=== PATIENT | female | born 1950 | race Caucasian/White ===

== ENCOUNTER 2023-03-27 18:04 | Inpatient (IN) | payer OTHER, MEDICAID ==
[2023-03-27 19:17] LABS: #Basophils 0.1 thou/uL (0.0-0.2); #Eosinphils 0.1 thou/uL (0.0-0.7); #Monocytes 0.6 thou/uL (0.11-0.59); #Neutrophils 8.6 thou/uL (1.40-6.50); %Basophils 0.5 % (0.0-1.0); %Eosinophils 0.9 % (0.0-10.0); %Lymphocytes 8.6 % (21.0-51.0); %Monocytes 5.8 % (0.0-10.0); %Neutrophils 83.8 % (42.0-75.0); Hematocrit 40.6 % (36.0-47.0); Hemoglobin 13.8 g/dL (12.0-16.0); Mean Corpuscular Hemoglobin 31.4 pg (27.0-31.0); Mean Corpuscular Volume 92.3 fl (78.0-98.0); Platelet Count 241 10x3/uL (130-400); RBC Distribution Width 13.2 % (11.5-14.5); White Blood Cell (WBC) Count 10.3 10x3/uL (4.8-10.8)
[2023-03-27 19:27] LABS: Actual Bicarbonate (HCO3v) 17.9 mEq/L (22-28); Base Excess -6.9 mEq/L (-2.0 to +3.0); Chloride (VBG) 93 mmol/L (98-106); Hematocrit-VBG 44 % (36.0-47.0); Hemoglobin (Hb) 14.9 g/dL (11.7-16.1); Sodium 136 mmol/L (133-146); pH (venous) 7.334 (7.32-7.43)
[2023-03-27 19:54] LABS: ALT (SGPT) 9 U/L (8-55); AST (SGOT) 15 U/L (5-34); Albumin 4.1 g/dL (3.4-4.8); Alkaline Phosphatase 102 U/L (40-110); Anion Gap 27 mmol/L (10-20); Bilirubin, Total 1.4 mg/dL (0.2-1.2); Calc. Creatinine Clearance 0 mL/min (70-130); Calcium 8.9 mg/dL (7.8-10.44); Carbon Dioxide 16 mmol/L (23-31); Chloride 94 mmol/L (98-107); Estimated GFR 9; Globulin 4.1 g/dL (2.4-3.5); Glucose 100 mg/dL (83-110); Potassium 3.3 mmol/L (3.5-5.1); Protein, Total 8.2 g/dL (5.8-8.1); Sodium 134 mmol/L (136-145)
[2023-03-27 19:55] LABS: Acetaminophen Less than 10 mcg/mL (10.0-30.0); Alcohol Less than 10.0 mg/dL (Less than 10); Salicylate Less than 8.0 mg/dL (15.0-30.0)
[2023-03-27 19:59] LABS: Troponin I 0.071 ng/mL (< 0.028)
[2023-03-27 20:11] LABS: Amphetamine Not Detected (NotDetected); Barbiturates Screen Not Detected (NotDetected); Benzodiazepine Screen Not Detected (NotDetected); Cocaine Metabolite Screen Not Detected (NotDetected); Methadone Not Detected (NotDetected); Methamphetamine Not Detected (NotDetected); Opiate Screen Not Detected (NotDetected); Oxycodone Screen Not Detected (NotDetected); Phencyclidine (PCP) Not Detected (NotDetected); THC/Cannabinoid Screen Not Detected (NotDetected); Tricyclic Screen Not Detected (NotDetected)
[2023-03-27 20:27] LABS: BUN (Urea Nitrogen) 130 mg/dL (9.8-20.1)
[2023-03-27] MEDS ORDERED: Acetaminophen 325 MG TAB PO PRN ×2 (22:45→22:47)
[2023-03-27] MEDS ORDERED: Ondansetron PF 4 MG/2 ML Vial IVP PRN ×2 (22:45→22:47)
[2023-03-27] MEDS ORDERED: Ondansetron ODT 4 MG TAB SL PRN (22:45)
[2023-03-27] MEDS ORDERED: Nicotine 14 MG PATCH TD PRN (22:47)
[2023-03-27] MEDS ORDERED: Ondansetron ODT 4 MG TAB PO PRN (22:47)
[2023-03-27] MEDS ORDERED: Sodium Bicarbonate 150 MEQ in Dextrose 5% in Water 1,000 ML IV SCH (23:30)
[2023-03-27 23:52] LABS: Anion Gap 23 mmol/L (10-20); Calc. Creatinine Clearance 0 mL/min (70-130); Calcium 8.1 mg/dL (7.8-10.44); Carbon Dioxide 15 mmol/L (23-31); Chloride 100 mmol/L (98-107); Estimated GFR 11; Glucose 108 mg/dL (83-110); Potassium 3.3 mmol/L (3.5-5.1); Sodium 135 mmol/L (136-145)
[2023-03-27 23:55] LABS: Troponin I 0.049 ng/mL (< 0.028)
[2023-03-27 23:59] VITALS: BMI 25.7
[2023-03-28 00:14] LABS: BUN (Urea Nitrogen) 126 mg/dL (9.8-20.1)
[2023-03-28 04:01] LABS: #Basophils 0.1 thou/uL (0.0-0.2); #Eosinphils 0.3 thou/uL (0.0-0.7); #Monocytes 0.5 thou/uL (0.11-0.59); #Neutrophils 4.7 thou/uL (1.40-6.50); %Basophils 0.8 % (0.0-1.0); %Eosinophils 4.3 % (0.0-10.0); %Lymphocytes 15.4 % (21.0-51.0); %Monocytes 7.2 % (0.0-10.0); Hematocrit 32.1 % (36.0-47.0); Mean Corpuscular HGB CONC 33.6 g/dL (32.0-36.0); Mean Corpuscular Hemoglobin 30.4 pg (27.0-31.0); Mean Corpuscular Volume 90.4 fl (78.0-98.0); Mean Platelet Volume 10.8 fL (7.4-10.4); Platelet Count 193 10x3/uL (130-400); RBC Distribution Width 13.2 % (11.5-14.5); Red Blood Cell (RBC) Count 3.55 mill/uL (4.20-5.40); White Blood Cell (WBC) Count 6.5 10x3/uL (4.8-10.8)
[2023-03-28 04:15] LABS: Hemoglobin 10.8 g/dL (12.0-16.0)
[2023-03-28 04:26] LABS: Troponin I 0.078 ng/mL (< 0.028)
[2023-03-28] MEDS ORDERED: Amlodipine 5 MG TAB PO SCH (09:00)
[2023-03-28] MEDS ORDERED: Famotidine 20 MG TAB ONE (12:37)
[2023-03-28] MEDS ORDERED: Amlodipine 5 MG TAB ONE (12:37)
[2023-03-28] MEDS: Famotidine 20 MG TAB PO SCH (12:44)
[2023-03-28] MEDS: Heparin 5,000 UNITS/ML VIAL SC SCH (21:52)
[2023-03-28] MEDS ORDERED: Hyaluronidase, Human Recomb. 150 UNITS/ML VIAL SC SCH (23:45)
[2023-03-29] MEDS ORDERED: Hyaluronidase, Human Recomb. 150 UNITS/ML VIAL SC SCH (01:45)
[2023-03-29] MEDS: Heparin 5,000 UNITS/ML VIAL SC SCH ×2 (09:20→22:26)
[2023-03-29] MEDS: Famotidine 20 MG TAB PO SCH (09:21)
[2023-03-29] MEDS: Amlodipine 5 MG TAB PO SCH (09:21)
[2023-03-29 12:49] LABS: Anion Gap 16 mmol/L (10-20); BUN (Urea Nitrogen) 76 mg/dL (9.8-20.1); Calc. Creatinine Clearance 23 mL/min (70-130); Calcium 8.4 mg/dL (7.8-10.44); Carbon Dioxide 29 mmol/L (23-31); Chloride 97 mmol/L (98-107); Critical Call Chemistry NUR.AB28 @1248; Estimated GFR 26; Glucose 108 mg/dL (83-110); Potassium 2.6 mmol/L (3.5-5.1); Sodium 139 mmol/L (136-145)
[2023-03-29] MEDS ORDERED: Potassium Chloride 40 MEQ in Premix 1 BAG IVPB SCH (13:30)
[2023-03-29 14:03] LABS: Magnesium 1.5 mg/dL (1.6-2.6)
[2023-03-29] MEDS: Sodium Chloride 0.9% 1,000 ML IV SCH ×2 (15:18→22:27)
[2023-03-29] MEDS: Potassium Chloride 20 MEQ in Premix 1 BAG IVPB SCH ×2 (15:19→17:39)
[2023-03-30 06:16] LABS: Anion Gap 13 mmol/L (10-20); BUN (Urea Nitrogen) 53 mg/dL (9.8-20.1); Calc. Creatinine Clearance 31 mL/min (70-130); Calcium 7.5 mg/dL (7.8-10.44); Carbon Dioxide 26 mmol/L (23-31); Chloride 106 mmol/L (98-107); Estimated GFR 36; Glucose 80 mg/dL (83-110); Magnesium 1.4 mg/dL (1.6-2.6); Potassium 2.8 mmol/L (3.5-5.1); Sodium 142 mmol/L (136-145)
[2023-03-30] MEDS ORDERED: Magnesium 2 GM/50 ML(in water) 2 GM in Premix 1 BAG IVPB SCH (07:45)
[2023-03-30] MEDS: Potassium Chloride 20 MEQ in Premix 1 BAG IVPB SCH ×2 (09:32→13:24)
[2023-03-30] MEDS: Amlodipine 5 MG TAB PO SCH (09:34)
[2023-03-30] MEDS: Famotidine 20 MG TAB PO SCH (09:34)
[2023-03-30] MEDS: Heparin 5,000 UNITS/ML VIAL SC SCH ×2 (09:34→20:43)
[2023-03-30] MEDS: Sodium Chloride 0.9% 1,000 ML IV SCH (20:30)
[2023-03-31 05:28] LABS: Anion Gap 18 mmol/L (10-20); BUN (Urea Nitrogen) 31 mg/dL (9.8-20.1); Calc. Creatinine Clearance 40 mL/min (70-130); Calcium 7.9 mg/dL (7.8-10.44); Carbon Dioxide 19 mmol/L (23-31); Chloride 105 mmol/L (98-107); Estimated GFR 46; Glucose 69 mg/dL (83-110); Potassium 3.9 mmol/L (3.5-5.1); Sodium 138 mmol/L (136-145)
[2023-03-31 08:25] LABS: Magnesium 1.8 mg/dL (1.6-2.6)
[2023-03-31] MEDS: Amlodipine 5 MG TAB PO SCH (08:41)
[2023-03-31] MEDS: Famotidine 20 MG TAB PO SCH (08:41)
[2023-03-31] MEDS: Heparin 5,000 UNITS/ML VIAL SC SCH ×2 (08:42→21:18)
[2023-04-01 06:09] LABS: Anion Gap 14 mmol/L (10-20); BUN (Urea Nitrogen) 21 mg/dL (9.8-20.1); Calc. Creatinine Clearance 41 mL/min (70-130); Calcium 7.8 mg/dL (7.8-10.44); Carbon Dioxide 22 mmol/L (23-31); Chloride 103 mmol/L (98-107); Estimated GFR 48; Glucose 72 mg/dL (83-110); Potassium 3.3 mmol/L (3.5-5.1); Sodium 136 mmol/L (136-145)
[2023-04-01] MEDS: Heparin 5,000 UNITS/ML VIAL SC SCH (08:54)
[2023-04-01] MEDS: Famotidine 20 MG TAB PO SCH (08:54)
[2023-04-01] MEDS: Amlodipine 5 MG TAB PO SCH (08:54)
[2023-04-01 13:37] VITALS: BP 116/70; TEMP 97.9
== END 2023-04-01 14:45 | disposition home or self-care (01) | DRG 682 ==
LOC: ERS 18:04 → ERHOLD 22:29 → 2NO 03-28 17:39 → MSONC 03-31 16:37
PROVIDERS: ADMIT Student in an Organized Health Care Education/Training Program; ATTEND Hospitalist
PROC: 4A043R1 Measurement of Venous Saturation, Peripheral, Percutaneous Approach (ICD-10-PCS; principal; 2023-03-27)
PROC: 0T9B70Z Drainage of Bladder with Drainage Device, Via Natural or Artificial Opening (ICD-10-PCS; 2023-03-27)
DX: N17.9 Acute kidney failure, unspecified (principal); G93.41 Metabolic encephalopathy; E87.20 Acidosis, unspecified; E87.1 Hypo-osmolality and hyponatremia; Z90.710 Acquired absence of both cervix and uterus; F17.210 Nicotine dependence, cigarettes, uncomplicated; Z79.899 Other long term (current) drug therapy; E78.5 Hyperlipidemia, unspecified; N18.9 Chronic kidney disease, unspecified; I12.9 Hypertensive chronic kidney disease with stage 1 through stage 4 chronic kidney disease, or unspecified chronic kidney disease; E87.6 Hypokalemia; E83.42 Hypomagnesemia; Z79.01 Long term (current) use of anticoagulants
CPT/HCPCS: 36415; 36416; 51701; 70450; 71045; 74176; 76770; 80048; 80053; 80306; 80307; 82805; 83605; 83735; 83935; 84300; 84443; 84484; 85025; 87040; 87086; 93005; 94760; J1644; J3473; J3475; J3480; J7050; J7070